=== PATIENT | male | born 1975 | race Caucasian/White ===

== ENCOUNTER 2016-11-26 10:48 | Emergency (ER) | payer MEDICAID, OTHER ==
[2016-11-26 10:54] VITALS: TEMP 97.7
--- NOTE | 2016-11-26 12:06 | EDPHY ---
H & P Stated Complaint: hx sciatica/fell 2 weeks ago increasing back pain Time Seen by Provider: 11/26/16 12:05 - Personal History Current Tetanus/Diphtheria Vaccine: Yes - Medical/Surgical History Hx Asthma: No Hx Chronic Respiratory Disease: No Hx Diabetes: No Hx Cardiac Disease: No Hx Renal Disease: No Hx Cirrhosis: No Hx Alcoholism: No Hx HIV/AIDS: No Hx Splenectomy or Spleen Trauma: No Other PMH: sciatica - Social History Smoking Status: Current every day smoker Constitutional: Initial Vital Signs Temperature (C) 36.5 C 11/26/16 10:51 Heart Rate 81 11/26/16 10:51 Respiratory Rate 20 11/26/16 10:51 Blood Pressure 113/80 11/26/16 10:51 O2 Sat (%) 99 11/26/16 10:51 O2 Delivery Mode Room Air Allergies/Adverse Reactions: No Known Allergies Allergy (Unverified 11/26/16 10:51) Home Medications: Medication Instructions Recorded methylPREDNISolone [Medrol Dose 1 each PO AD #1 ea 11/26/16 Silvio] oxyCODONE IR [Oxycodone Ir (*)] 5 - 10 mg PO Q6 PRN #20 tab 11/26/16 Medical Decision Making - Diagnostics Imaging Results: Imaging Impressions Lumbar Spine MRI 11/26/16 12:14 Impression: Large central and leftward disk herniation/free fragment at L5-S1 on the left side, resulting in marked impingement on the left lateral recess and impingement on the medial aspect of the L5-S1 neural foramen on the left side. Results called and discussed with Gabriel Dey MD on November 26, 2016 at 1350 hours. Imaging: Discussed imaging studies w/ director of acquisition marketing Radiologist, I viewed and interpreted images myself ED Course/Re-evaluation: CHIEF COMPLAINT: Back pain HISTORY OF PRESENT ILLNESS: 41-year-old who fell about 2 weeks ago onto his left hip and thigh. Initially just had some localized pain in the left buttocks and left thigh but about 2 or 3 days after the fall she developed some radiation of pain down his left leg and some lower back pain. Tried to ride it out over the last 10 days or so but it is getting much worse. He took a Vicodin this morning which he had left over and helped somewhat but not completely. He has been taking a bunch of ibuprofen. He could not sleep at all last night. Majority of his symptoms are related to left leg pain and radiation and some weakness in the left foot. Denies any fevers or chills. He denies any prior back surgeries. REVIEW OF SYSTEMS: A 10 point review of systems was performed and is negative with the exception of the elements mentioned in the history of present illness. PHYSICAL EXAM: HR, BP, O2 Sat, RR. Temp noted General Appearance: Alert, well hydrated, appropriate, and non-toxic appearing. Head: Atraumatic without scalp tenderness or obvious injury Eyes: Pupils equal, round, reactive to light and accommodation, EOMI, no trauma , no injection. Ears: Clear bilaterally, no perforation, normal landmarks Nose: Atraumatic, no rhinorrhea, clear. Throat: There is no erythema or exudates, no lesions, normal tonsils, mucus membranes moist. Neck: Supple, 2+ carotid upstroke, nontender, no lymphadenopathy. Respiratory: No retractions, no distress, no wheezes, and no accessory muscle use. Lungs are clear to auscultation bilaterally. Cardiovascular: Regular rate and rhythm, no murmurs, rubs, or gallops. Bilateral carotid, radial, dorsalis pedis, and posterior tibial pulses intact. Good capillary refill all extremities. Gastrointestinal: Abdomen is soft, nontender, non-distended, no masses, no rebound, no guarding, no peritoneal signs. Musculoskeletal: Mild anterior tibialis dysfunction on the left. Otherwise, Normal active ROM of all extremities, atraumatic. Neurological: Alert, appropriate, and interactive. The patient has normal DTRs and non-focal cranial nerves, motor, sensory, and cerebellar exam. Skin: No rashes, good turgor, no nodules on palpation. Past medical history: None Past surgical history: None Family history: Noncontributory Social history: , employed, does not abuse tobacco drugs or alcohol DIAGNOSTICS/PROCEDURES/CRITICAL CARE TIME: Study: MRI of the: lumbar spine Indication: trauma with a possible L5-S1 radiculopathy to the left Results: MRI scan of the lumbar spine was obtained. The results of the study are large disc herniation L5-S1 to the left. The study was read by the radiologist, Dr. Enrique Gomez . I viewed the images myself on the PACS system. DIFFERENTIAL DIAGNOSIS: The differential diagnosis for the patient's back pain included but was not limited to musculo-skeletal pain, epidural abscess, herniated disk, spinal fracture, and intra-abdominal causes including urinary system. MEDICAL DECISION MAKING: This patient has no evidence of epidural abscess or infectious process. Is acting like a L5-S1 disc herniation with left radiculopathy. MRI is pending. I gave the patient 60 of prednisone and 2 Percocet in the interim. This patient has a large disc herniation at L5-S1 to the left which most definitely correlates with his symptoms. There may be a free fragment. I have started the patient on steroids and pain pills and he will be followed up by Neurosurgery. I have paged Neurosurgery so that he can get an earlier appointment. - Data Points Medications Given: Discontinued Medications Oxycodone/Acetaminophen (Percocet 5/325) 2 tab PO EDNOW ONE Stop: 11/26/16 12:15 Last Admin: 11/26/16 12:20 Dose: 2 tab Prednisone (Prednisone) 60 mg PO EDNOW ONE Stop: 11/26/16 12:15 Last Admin: 11/26/16 12:20 Dose: 60 mg Departure - Departure Disposition: Home, Routine, Self-Care Clinical Impression: Lumbar disc herniation Condition: Good Instructions: Lumbar Disc Herniation (ED) Additional Instructions: 1. Take your Oxycodone as prescribed as needed for pain management. 2. Take your Medrol Dosepak as prescribed. 3. The neurosurgery office should call you tomorrow to discuss further management. We will provide you with their contact information as well. 4. Return to the ED for uncontrollable pain, inability to control your bladder or bowels, increasing numbness or weakness, or other worsening of condition. Referrals: NONE *PRIMARY CARE P,. [Primary Care Provider] - As per Instructions Daksha Gooden DO [Doctor of Osteopathy] - As per Instructions Prescriptions: methylPREDNISolone [Medrol Dose Silvio] 1 each PO AD #1 ea oxyCODONE IR [Oxycodone Ir (*)] 5 - 10 mg PO Q6 PRN #20 tab PRN Reason: Pain, Severe Report Scribed for: Gabriel Dey Report Scribed by: Marivel Montano Date of Report: 11/26/16 Time of Report: 14:14
[2016-11-26] MEDS ORDERED: OXYCODONE/APAP 5/325 TAB PO ONE (12:14)
[2016-11-26] MEDS ORDERED: predniSONE 20 MG TAB PO ONE (12:14)
[2016-11-26 14:12] VITALS: BP 130/89; PULSE 82; RESP 16; O2SAT 97
== END 2016-11-26 14:11 | disposition home or self-care (01) ==
DX: M51.26 Other intervertebral disc displacement, lumbar region (principal); F17.200 Nicotine dependence, unspecified, uncomplicated